=== PATIENT | female | born 1940 | race Caucasian/White ===

== ENCOUNTER 2016-09-21 06:55 | Day surgery (SDC) | payer MEDICARE, OTHER ==
--- NOTE | ~2016-09-21 | EGD ---
EGD REPORT [facility] [address] [address] NAME: JODY CLEMENTS : [birth year] STATUS : REG [facility]#: [id number] AGE: 75 ADM/REG DATE : 09/21/16 MR#: [id number] REPORT SERV DATE: 09/21/16 DICTATED BY: MAG SCHMIDT DATE: 09/21/16 REPORT STATUS : Draft TRANSCRIBED BY: [facility] DATE: 09/21/16 Endoscopy Center Patient Name: Jody Clements Date of : 1940 Attending MD: MAG SCHMIDT MD Procedure Date No Time: 09/21/2016 Procedure: Upper GI endoscopy Indications: Epigastric abdominal pain, Heartburn, Suspected esophageal reflux Referring MD: YAO CAIN MD Medicines: as per anesthesia Complications: No immediate complications. Procedure: Pre-Anesthesia Assessment: - ASA Grade Assessment: III - A patient with severe systemic disease. After obtaining informed consent, the endoscope was passed under direct vision. Throughout the procedure, the patient's blood pressure, pulse, and oxygen saturations were monitored continuously. The GIF [id number] was introduced through the mouth, and advanced to the third part of duodenum. The upper GI endoscopy was accomplished without difficulty. The patient tolerated the procedure. Findings: Patchy candidiasis was found in the entire esophagus. brushings done A medium-sized hiatus hernia was present. The examined duodenum was normal. Impression: - Monilial esophagitis. - Hiatus hernia. - Normal examined duodenum. Recommendation: - Await pathology results. Procedure Code(s): --- Professional --- 12551, Esophagogastroduodenoscopy, flexible, transoral; diagnostic, including collection of specimen(s) by brushing or washing, when performed (separate procedure) Diagnosis Code(s): --- Professional --- B37.81, Candidal esophagitis K44.9, Diaphragmatic hernia without obstruction or gangrene R10.13, Epigastric pain EGD REPORT [facility] [address] [place] [address] NAME: JODY CLEMENTS : [birth year] STATUS : REG [facility] PAT#: [id number] AGE: 75 ADM/REG DATE : 09/21/16 MR#: [id number] REPORT SERV DATE: 09/21/16 DICTATED BY: MAG SCHMIDT. DATE: 09/21/16 REPORT STATUS : Draft TRANSCRIBED BY: [employer] DATE: 09/21/16 R12, Heartburn CPT copyright 2013 [employer]. All rights reserved. The codes documented in this report are preliminary and upon air intercept controller supervisor review may be revised to meet current compliance requirements. MAG SCHMIDT MD 09/21/2016 8:56 AM This report has been signed electronically. Number of Addenda: 0 Note Initiated On: 09/21/2016 8:38 AM Scope Withdrawal Time 0 hours 0 minutes 0 seconds [address] [place] [address]
--- NOTE | ~2016-09-21 | EGD ---
EGD REPORT [facility] [address] [address] NAME: JODY CLEMENTS : [birth year] STATUS : REG [facility]#: [id number] AGE: 75 ADM/REG DATE : 09/21/16 MR#: [id number] REPORT SERV DATE: 09/21/16 DICTATED BY: MAG SCHMIDT DATE: 09/21/16 REPORT STATUS : Draft TRANSCRIBED BY: [employer] DATE: 09/21/16 Endoscopy Center Patient Name: Jody Clements Date of : 1940 Attending MD: MAG SCHMIDT MD Procedure Date No Time: 09/21/2016 Procedure: Colonoscopy Indications: Abdominal pain in the left lower quadrant, Abdominal pain in the right lower quadrant, FH of Colon Cancer -distant relative Referring MD: YAO CAIN MD Medicines: as per anesthesia Complications: No immediate complications. Procedure: Pre-Anesthesia Assessment: - ASA Grade Assessment: III - A patient with severe systemic disease. After I obtained informed consent, the scope was passed under direct vision. Throughout the procedure, the patient's blood pressure, pulse, and oxygen saturations were monitored continuously. The [facility] [id number] was introduced through the anus and advanced to the cecum, identified by appendiceal orifice and ileocecal valve. The colonoscopy was somewhat difficult due to restricted mobility of the colon, significant looping and a tortuous colon. The patient tolerated the procedure. The quality of the bowel preparation was adequate to identify polyps. Findings: The perianal and digital rectal examinations were normal. A few small and large-mouthed diverticula were found in the sigmoid colon, in the descending colon and in the transverse colon. Internal hemorrhoids were found during endoscopy and were mild. Impression: - Diverticulosis in the sigmoid colon, in the descending colon and in the transverse colon. - Internal hemorrhoids. Recommendation: - Repeat colonoscopy in 5 years for surveillance. Procedure Code(s): --- Professional --- 90387, Colonoscopy, flexible, proximal to splenic flexure; diagnostic, with or without collection of specimen(s) by brushing or washing, with or without colon decompression (separate procedure) EGD REPORT [facility] [address] [address] NAME: JODY CLEMENTS : [birth year] STATUS : REG [facility] PAT#: [id number] AGE: 75 ADM/REG DATE : 09/21/16 MR#: [id number] REPORT SERV DATE: 09/21/16 DICTATED BY: MAG SCHMIDT DATE: 09/21/16 REPORT STATUS : Draft TRANSCRIBED BY: [employer] SERVICES DATE: 09/21/16 Diagnosis Code(s): --- Professional --- K64.8, Other hemorrhoids K57.30, Diverticulosis of large intestine without perforation or abscess without bleeding R10.32, Left lower quadrant pain R10.31, Right lower quadrant pain Z80.0, Family history of malignant neoplasm of digestive organs CPT copyright 2013 [employer]. All rights reserved. The codes documented in this report are preliminary and upon physical ther review may be revised to meet current compliance requirements. MAG SCHMIDT MD 09/21/2016 9:27 AM This report has been signed electronically. Number of Addenda: 0 Note Initiated On: 09/21/2016 8:34 AM Scope Withdrawal Time 0 hours 7 minutes 5 seconds [address] [place] [address]
[~2016-09-21 06:55] MED LIST: ALBUTEROL0.63 MG/3 INH; ASAB PO; ASMANEX 30110 MCG IN; CELEXA20 PO; FLONASE NAS; KLOR-CON 1010 MEQ PO; LIMBITROL1 TAB PO; MAXIMUM D3 PO; METANX PO; PRILOSEC40 MG PO; PROBIOTIC PO; REMERON30 MG PO; SINGULAIR5 MG PO; SYMAX-SL0.125 MG SL; TUMS E-X750 M2 PO; ULTRAM50 PO; VENTOLIN HFA INH; ZANTAC 150 PO; ZYRTEC ALLGY10 MG PO
== END 2016-09-21 23:59 | disposition home or self-care (01) ==
LOC: DMU 06:55
PROVIDERS: Internal Medicine Gastroenterology
PROC: 0DJ08ZZ Inspection of Upper Intestinal Tract, Via Natural or Artificial Opening Endoscopic (ICD-10-PCS; principal; 2016-09-21 08:30)
PROC: 0DJD8ZZ Inspection of Lower Intestinal Tract, Via Natural or Artificial Opening Endoscopic (ICD-10-PCS; 2016-09-21 08:30)
DX: K20.8 Other esophagitis (principal); B48.8 Other specified mycoses; K44.9 Diaphragmatic hernia without obstruction or gangrene; R10.13 Epigastric pain; R12 Heartburn; K64.8 Other hemorrhoids; K57.30 Diverticulosis of large intestine without perforation or abscess without bleeding; R10.32 Left lower quadrant pain; R10.31 Right lower quadrant pain; Z80.0 Family history of malignant neoplasm of digestive organs; I10 Essential (primary) hypertension; J44.9 Chronic obstructive pulmonary disease, unspecified
CPT/HCPCS: 87210; 88112